=== PATIENT | female | born 1960 | race African-American/Black ===

== ENCOUNTER 2024-09-11 15:37 | Emergency (ER) | payer OTHER, SELFPAY ==
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
[2024-09-11 15:38] VITALS: BP 152/73; PULSE 90; RESP 17; TEMP 36.4; O2SAT 99
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
--- OUTSIDE RECORDS SUMMARY | 2024-09-11 18:07 | XMS_ITS | Referral Summary ---
Author Organization [facility] Address [address] [place] [address] Care Team Providers Care Brine Tank Tender Name Role Phone Radhika Ewing MD Unavailable [phone] Reina Kuhn Primary Care Provider + Encounters Date Type Department Care Team Description 09/01/2024 Letter (Out) [facility] Medical [facility] Family Medicine [address] [phone] 09/01/2024 8:30 AM JET WIPER Office Visit [facility] Family Medicine [address] [phone] Reina Kuhn PA Physical exam, annual (Primary Dx); History of breast cancer in female; Status post left mastectomy; Acquired hypothyroidism; B12 deficiency; Epidermoid cyst of skin of back 08/03/2024 Telephone [facility] Surgery [facility] Advanced Medicine [address]th [place] [address] Africa Rodriguez SCHEDULING SURGERY 07/25/2024 4:15 PM JET WIPER Office Visit [facility] Surgery [facility] Advanced Medicine [address]th [place] [address] Carson Latif MD Malignant neoplasm of upper-outer quadrant of left breast in female, estrogen receptor positive (HCC) 07/03/2024 8:36 AM JET WIPER - 07/03/2024 11:59 PM JET WIPER Hospital Encounter [facility] Medical Office [address] [place] [address] Mass of lower outer quadrant of right breast Discharge Disposition: Discharge to home or self care 07/03/2024 8:36 AM JET WIPER - 07/03/2024 11:59 PM JET WIPER Hospital Encounter [facility] Medical Office [facility] [address] [place] [address] Mass of lower outer quadrant of right breast Discharge Disposition: Discharge to home or self care 06/13/2024 4:00 PM JET WIPER Office Visit [facility] Family [facility] [address] [phone] Reina Kuhn PA Epidermoid cyst of skin of back (Primary Dx); Subacute cough; Post-nasal drip from Last 3 Months Allergies No known active allergies Medications mecobalamin (B12 ACTIVE ORAL)Indications:s upplement Take 1 tablet by mouth daily Active cetirizine (ZyrTEC) 10 mg tablet Take 1 tablet (10 mg total) by mouth daily as needed for allergies 30 tablet 5 06/13/20 24 Active Additional Information Patient not taking.Reported on 09/01/2024 fluticasone propionate (FLONASE) 50 mcg/actuation nasal spray Administer 2 sprays into each nostril daily 1 each 1 06/13/20 24 Active Additional Information Patient not taking.Reported on 09/01/2024 Knippa Thyroid 30 mg tabletIndications: Acquired hypothyroidism Take 1 tablet (30 mg total) by mouth every morning 90 tablet 3 09/01/19 25 Active Knippa Thyroid 30 mg tablet Take 1 tablet (30 mg total) by mouth every morning 12/20/19 24 025 Discontin ued(Reord er) Active Problems Problem Noted Date Diagnosed Date Acquired hypothyroidism 09/01/2024 Assessment & Plan (09/01/2024 9:03 AM JET WIPER): Chronic, stable condition. Continue current medication regimen: Knippa Thyroid 30mg B12 deficiency 09/01/2024 Assessment & Plan (09/01/2024 9:04 AM JET WIPER): Recheck labs in December Physical exam, annual 09/01/2024 Assessment & Plan (09/01/2024 9:04 AM JET WIPER): Doing well Labs due in December 2024 Other screenings UTD F/u annually Epidermoid cyst of skin of back 06/13/2024 Assessment & Plan (09/01/2024 9:03 AM JET WIPER): Bothersome, wanting removed Referral to derm placed Assessment & Plan (06/13/2024 4:20 PM JET WIPER): Very small, noninflamed. Reassured patient Continue to monitor. No further treatment needed at this time. Patient can utilize warm compresses Post-nasal drip 06/13/2024 Assessment & Plan (06/13/2024 4:20 PM JET WIPER): Likely explanation of patient's cough when lying down. Trial of Zyrtec and Flonase, if no improvement in symptoms and a couple of weeks may consider treating heartburn as culprit of cough. 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 Continue current GERD treatment. GERD precautions. 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 Pt finished appt w/ Dr. Suh. According to Industry notes, pigmentation OS retina is CHRPE. Yearly evals recommended. 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 Would like second opinion, refer to ophthalmology. Pt has large/deep CD's but no hx of glaucoma w/ good IOPS. Photodocumented today, RTC for 30-2VF, tonometry and pachymetry. Cortical age-related cataract, right eye 021 Open angle with borderline findings, high risk, bilateral 06/05/2021 Hyperopia 06/05/2021 Carpal tunnel syndrome 05/05/2021 Overview (03/19/2023): pt with postive tunnels and phalens test, trial of wrist splints, f/u in 6 - 8 weeks, consdier nerve conduciton studies iif not imrpoved. 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 symptoms have somewhat resolved taking ranitadine. but now feels symptoms of difficulty swallowing with sore throat. throat culture and h pylori today and follow-up with pmd for further evaluation Other seborrheic keratosis 03/19/2023 0 09/01/2024 Overview (03/19/2023): Reassured pt - pt to follow-up if lesion continues to change starts to become irritated, itch or bleed. Pain in wrist 03/19/2023 09/01/2024 Overview (03/19/2023): pt with previous dx of Carpel Tunnel, with increased pain in the left wrist, improvment in right wrist. Refer for x-ray evalution to eval for fracture, though seem sunlikely. If negative, recommend continue to wear brace, and refer to Ortho for evlaution. Malignant neoplasm of upper- outer quadrant of left breast in female, estrogen receptor positive 01/18/2018 09/01/2024 Smell disturbance 12/07/2017 09/01/2024 History of breast cancer 09/04/2016 Patellofemoral pain syndrome 09/04/2016 09/01/2024 Atopic dermatitis 08/12/2016 09/01/2024 Sinusitis 06/04/2016 09/01/2024 Arthralgia of shoulder 10/16/201109/01 Overview (03/19/2023): resolved, follow up as needed. If sx's recur, tx with ice/NSAIDS/rest. Immunizations Immunization Administration Dates Next Due Hep A, Adult 12/20/1997,05/15/1997 Influenza, Quadrivalent, Spl it, Preservative Free, Intramuscular 06/12/2023,06/10/2022 Influenza, Split 07/03/2008 Influenza, Trivalent, Cell Culture-based MDCK, Preservative Free, Antibiotic Free, Intramuscular 04/25/2021 Influenza, Trivalent, Preser vative Free, Intramuscular 04/03/2024 Influenza, Unspecified 04/28/2023(Deferr ed: Patient Refused),05/08/2022(Deferred: Patient Refused),04/23/2021(Deferred: Patient Refused),04/18/2021,06/23/2017, 017,05/29/2016,10/31/2015,07/31/2015,0 02/21/2015,07/18/2014,01/24/2014,2013,10/11/2013,08/30/2013,08/09/2013, 07/26/2013,07/05/2013,06/28/2013,06/14,05/31/2013,05/17/2013,05/10/2013 ,05/03/2013 Influenza, Whole 05/23/2002, 1,07/05/2000,06/05,07/10/1998,05/15/1997 MMR 04/18/1980 OPV 11/15/1980 PPD TEST 07/05/2000 Td, adsorbed 05/16/1993 Tdap 10/09/2022, 2(Deferred: Patient Refused),09/22/2010 Typohid AKD SQ 05/16/1993 Yellow Fever 08/14/1994 ZOSTER LIVE 06/23/2017, 7,05/29/2016,10/30,07/31/2015,04/24/2015,02/21/2015 ZOSTER Recombinant 08/08/2021,04/25/2021 Social History Tobacco Use Types Packs/Day Years Used Date Smoking Tobacco: Former Cigarettes 0 11/17/1975 - 11/16/1980 Smokeless Tobacco: Never Tobacco Cessation:Counseling Given: Not Answered Alcohol Use Standard Drinks/Week Comments Not Currently 0 (1 standard drink = 0.6 oz pur e alcohol) AUDIT-C Answer Date Recorded Q1: How often do you have a drink containing alc ohol? Monthly or less 03/01/2024 Q2: How many drinks containi ng alcohol do you have on a typical day when you are drinking? 1 or 2 03/01/2024 Q3: How often do you have si x or more drinks on one occasion? Never 03/01/2024 PHQ-2 Answer Date Recorded PHQ-2 Total Score (If total score is 3 or more points, staff should administer the PHQ-9) 0 09/01/2024 Personal Safety Answer Date Recorded Have you ever been in or are you currently in a harmful physical or emotional relationship or is someone making you feel afraid or unsafe? Denies 02/16/2023 Comments No Sex and Gender Information Value Date Recorded Sex Assigned at Not on file Legal Sex Female 9:58 AM JET WIPER Gender Identity Female 05/02/2021 2:23 PM CDT Sexual Orientation Straight 05/02/2021 2: 24 PM CDT Last Filed Vital Signs Vital Sign Reading Time Taken Comments Blood Pressure 118/74 09/01/2024 8:36 AM JET WIPER Pulse 66 09/01/2024 8:36 AM JET WIPER Temperature 36.4 C (97.6 F) 09/01/2024 8:36 AM JET WIPER Respiratory Rate 18 09/01/2024 8:36 AM JET WIPER Oxygen Saturation 99% 09/01/2024 8:36 AM JET WIPER Inhaled Oxygen Concentration - - Weight 68 kg (150 lb) 09/01/2024 8:36 AM JET WIPER Height 162.6 cm (5' 4 ) 09/01/2024 8:36 AM JET WIPER Body Mass Index 25.75 09/01/2024 8:36 AM JET WIPER Plan of Treatment Not on file Medical Devices Implanted Type Area Drill Press Operator Numerical Control Device Identifier Shelf Expiration Date Model / Serial / Lot [employer] Alloderm Select [id number] Allograft Regenerative Freeze Dried [id number] - S0 - [id number] Implanted:Qty: 1 on 02/16/2023 by Carson Latif MD at [facility] Other - see comments Left: Breast [employer] [id number] 06/17/2024 [id number] / 0 / [id number] Renner Memorygel Implant Implanted:Qty: 1 on 02/16/2023 by Carson Latif MD at [facility] Other - see comments Left: Breast [employer] 11/04/2027 [id number] / [id number] / Procedures Procedure Name Priority Date/Time Associated Diagnosis Comments US BREAST RIGHT LIMITED Schedule Routine, Read Routine (OP Routine) 07/03/2024 9:06 AM JET WIPER Mass of lower outer quadrant of right breast DIAGNOSTIC MAMMOGRAM RIGHT W AJ Schedule Routine, Read Routine (OP Routine) 07/03/2024 8:47 AM JET WIPER Mass of lower outer quadrant of right breast MAMMOGRAPHY Schedule Routine, Read Routine (OP Routine) 07/03/2024 8:43 AM JET WIPER US BREAST BILATERAL LIMITED Schedule Routine, Read Routine (OP Routine) 07/03/2024 8:43 AM JET WIPER HM COLONOSCOPY Routine 10/29/2023 from Last 3 Months or Most Recently Relevant to Health Maintenance Results * US Breast Right Limited (07/03/2024 9:06 AM JET WIPER) Anatomical Region Laterality Modality Breast Right Ultrasound 07/03/2024 9:12 AM JET WIPER Impressions 07/03/2024 9:12 AM JET WIPER Findings are still considered probably benign. Six-month follow-up right mammogram and right breast ultrasound are recommended. OVERALL FINAL ASSESSMENT: BI-RADS 3 - Probably benign findings. Short-term follow-up is recommended. Electronically signed by: Ginny Sanon M.D. Narrative 07/03/2024 9:12 AM JET WIPER EXAMINATION: RIGHT DIGITAL DIAGNOSTIC MAMMOGRAM AND DIGITAL BREAST TOMOSYNTHESIS; RIGHT BREAST SONOGRAM HISTORY: Follow-up. Left mastectomy. COMPARISON: Studies dating back to May 17, 2023 TECHNIQUE: Full field digital mammographic views of the right breast(s) were performed, including computer aided detection (CAD) and digital breast tomosynthesis (DBT). Directed ultrasound evaluation of the right breast(s) was performed. BREAST PARENCHYMAL COMPOSITION: The breasts are heterogeneously dense, which may obscure small masses. MAMMOGRAM FINDINGS: Again seen is a nodule in the 7:00 right breast, unchanged. There are no new masses. No suspicious calcifications are seen. There is no unexplained architectural distortion. There is no skin thickening seen. There are no mammographically abnormal lymph nodes seen in the axillae or elsewhere. ULTRASOUND FINDINGS: Sonography through the 7:00 position again demonstrates a complex cystic and solid structure with a maximum dimension of 7 mm. This is unchanged. Benigno Alvarado MD IMG MAMMO PROCEDURES Final Result * Diagnostic Mammogram Right W Aj (07/03/2024 8:47 AM JET WIPER) Anatomical Region Laterality Modality Breast Right Mammography 07/03/2024 9:12 AM JET WIPER Impressions 07/03/2024 9:12 AM JET WIPER Findings are still considered probably benign. Six-month follow-up right mammogram and right breast ultrasound are recommended. OVERALL FINAL ASSESSMENT: BI-RADS 3 - Probably benign findings. Short-term follow-up is recommended. Electronically signed by: Ginny Sanon M.D. Narrative 07/03/2024 9:12 AM JET WIPER EXAMINATION: RIGHT DIGITAL DIAGNOSTIC MAMMOGRAM AND DIGITAL BREAST TOMOSYNTHESIS; RIGHT BREAST SONOGRAM HISTORY: Follow-up. Left mastectomy. COMPARISON: Studies dating back to May 17, 2023 TECHNIQUE: Full field digital mammographic views of the right breast(s) were performed, including computer aided detection (CAD) and digital breast tomosynthesis (DBT). Directed ultrasound evaluation of the right breast(s) was performed. BREAST PARENCHYMAL COMPOSITION: The breasts are heterogeneously dense, which may obscure small masses. MAMMOGRAM FINDINGS: Again seen is a nodule in the 7:00 right breast, unchanged. There are no new masses. No suspicious calcifications are seen. There is no unexplained architectural distortion. There is no skin thickening seen. There are no mammographically abnormal lymph nodes seen in the axillae or elsewhere. ULTRASOUND FINDINGS: Sonography through the 7:00 position again demonstrates a complex cystic and solid structure with a maximum dimension of 7 mm. This is unchanged. Benigno Alvarado MD [facility] MAMMO PROCEDURES Final Result * MAMMOGRAPHY (07/03/2024 8:43 AM JET WIPER) Anatomical Region Laterality Modality Breast Mammography [facility] Provider Bruce MAMMO PROCEDURES Edit ed Result - Final * US Breast Bilateral Limited (07/03/2024 8:43 AM JET WIPER) Anatomical Region Laterality Modality Breast Bilateral Mammography [facility] Provider [facility] MAMMO PROCEDURES Danitza l Result * COLONOSCOPY (10/29/2023) Scribed Colonoscopy Normal Historical Provider HEALTH MAINTENANCE Final Result from Last 3 Months or Most Recently Relevant to Health Maintenance Insurance [facility] Member Subscriber Plan / Payer (Ef fective 2018-Present) Name:Judy Leiva Relation to Subscriber:Self Name:Judy Leiva Payer ID:[id number] (NAIC) Group ID:Not on file Type:Cylance:[phone] Address: [address] [place] [address] [facility] Advance Directives For more information, please contact: [phone] Documents on File Type Date Recorded Patient Mission Support Specialist Expl anation ADVANCE DIRECTIVE 01/14/2015 12:00 AM RIA SO WILL ADVANCE DIRECTIVE 01/14/2015 12:00 AM MO R OF TRACTOR MECHANIC HELPER FINANCIAL/MEDICAL Care Teams Brine Tank Tender Relationship Specialty Start Date End Date Reina Kuhn PA [address] [place] [address] PCP - General Family Medicine 09/01/24 Radhika Ewing MD [address] [place] [address] Referring Physician Surgery 01/11/18
--- OUTSIDE RECORDS SUMMARY | 2024-09-11 18:07 | XMS_ITS | Clinical Summary ---
Author Organization [employer] [facility] Address [address] [place] [address] Care Team Providers Care Vamp Creaser Name Role Phone Unavailable Primary Care Provider Unavailabl e Encounters Date Type Department Care Team Description 09/05/2024 External Device Data [facility]CTION Provider, Abstract 08/09/2024 External Device Data [facility] Provider, Abstract 08/08/2024 External Device Data [facility] Provider, Abstract 08/01/2024 External Device Data [facility] Provider, Abstract from Last 3 Months Social History Tobacco Use Types Packs/Day Years Used Date Smoking Tobacco: Never Assessed Comments Unknown Sex and Gender Information Value Date Recorded Sex Assigned at Not on file Legal Sex Female 11:00 AM CDT Gender Identity Not on file Sexual Orientation Not on file Plan of Treatment Health Maintenance Due Date Last Done Comments Pre-Diabetes and Diabetes Screening 1960 CERVICAL CANCER SCREENING 1990 FIT-DNA Q 3 years 2005 FIT/FOBT Q 1 year 2005 Flex Sig/CT Colonography Q 5 years 2005 INFLUENZA VACCINE (#1) 2024 2, 04/25/2021, 04/25/2021 BREAST CANCER SCREENING 06/14/2024 06/14/20 23, 05/17/2023, 08/22/2021, Additional history exists COLORECTAL SCREENING 07/10/2030 07/10/2020 Colorectal Cancer Screening 07/10/2030 DTAP/TDAP/TD VACCINES (3 - T d or Tdap) 10/09/2032 10/09/2022, 09/22/2010 RSV VACCINE (60+ or ) (1 - 1-dose 75+ series) 2035 ZOSTER VACCINE Completed 08/08/2021, 10/0 02/2021, 06/23/2017, Additional history exists Insurance [employer]
--- OUTSIDE RECORDS SUMMARY | 2024-09-11 18:07 | XMS_ITS | Encounter Summary ---
Author Organization [facility] Care Team Providers Care Lead Die Molder Name Role Phone Benigno Alvarado MD Primary Care Provid er Radhika Ewing MD Unavailable [phone] Reina Kuhn Primary Care Provider + Encounter Details Date Type Department Care Team (Latest Contact Info) Description 09/01/2017 Orders Only [facility] CLINCONV ProviderInocente MD [address] [place], [place] [id number] Social History Tobacco Use Types Packs/Day Years Used Date Smoking Tobacco: Former Comments Unknown Sex and Gender Information Value Date Recorded Sex Assigned at Not on file Legal Sex Female 9:58 AM RETAIL BEAUTY SPECIALIST Gender Identity Female 05/02/2021 2:23 PM CDT Sexual Orientation Straight 05/02/2021 2: 24 PM CDT documented as of this encounter Plan of Treatment Not on file documented as of this encounter Procedures Procedure Name Priority Date/Time Associated Diagnosis Comments CARDIOLOGY REPORT 09/01/2017 12: 00 AM RETAIL BEAUTY SPECIALIST documented in this encounter Results * CARDIOLOGY REPORT (09/01/2017 12:00 AM RETAIL BEAUTY SPECIALIST) Anatomical Region Laterality Modality Other Narrative 09/01/2017 12:00 AM RETAIL BEAUTY SPECIALIST Ordered by an unspecified provider. us Historical Provider [facility] J[facility] Final Result documented in this encounter Visit Diagnoses Not on filedocumented in this encounter Additional Health Concerns Infection Onset Date Last Indicated Resolved Time COVID: Suspected 09/13/2023 09/13/2023 09/13/2023 12:26 PM RETAIL BEAUTY SPECIALIST documented as of this encounter Care Teams Lead Die Molder Relationship Specialty Start Date End Date Benigno Alvarado MD [address] [place] [address] PCP - General Family Medicine 11/30/17 08/31/24 Reina Kuhn PA [address] [facility] [address] [place], [place] [phone] PCP - General Family Medicine 09/01/24 Radhika Ewing MD [address] [place] [address] [address] [place], [place] [phone] Referring Physician Surgery 01/11/18 documented as of this encounter
--- OUTSIDE RECORDS SUMMARY | 2024-09-11 18:07 | XMS_ITS | Clinical Summary ---
Author Organization [facility] Address [address] [place] [address] Care Team Providers Care Duster Tender Name Role Phone Radhika Ewing MD Unavailable [phone] Reina Kuhn Primary Care Provider + Allergies No known active allergies Medications mecobalamin [...] Additional Information Patient not taking.Reported on 09/01/2024 [place] Thyroid 30 mg tabletIndications: Acquired hypothyroidism Take 1 tablet (30 mg total) by mouth every morning 90 tablet 3 09/01/19 25 Active [place] Thyroid 30 mg tablet Take 1 tablet (30 mg total) by mouth every morning 12/20/19 24 025 Discontin ued(Reord er) Active Problems Problem Noted Date Diagnosed Date Acquired hypothyroidism 09/01/2024 Assessment & Plan (09/01/2024 9:03 AM ASSISTANT ACCOUNT MANAGER): Chronic, stable condition. Continue current medication regimen: [place] Thyroid 30mg B12 deficiency 09/01/2024 Assessment & Plan (09/01/2024 9:04 AM ASSISTANT ACCOUNT MANAGER): Recheck labs in December Physical exam, annual 09/01/2024 Assessment & Plan (09/01/2024 9:04 AM ASSISTANT ACCOUNT MANAGER): Doing well Labs due in December 2024 Other screenings UTD F/u annually Epidermoid cyst of skin of back 06/13/2024 Assessment & Plan (09/01/2024 9:03 AM ASSISTANT ACCOUNT MANAGER): Bothersome, wanting removed Referral to derm placed Assessment & Plan (06/13/2024 4:20 PM ASSISTANT ACCOUNT MANAGER): Very small, noninflamed. Reassured patient Continue to monitor. No further treatment needed at this time. Patient can utilize warm compresses Post-nasal drip 06/13/2024 Assessment & Plan (06/13/2024 4:20 PM ASSISTANT ACCOUNT MANAGER): Likely explanation of patient's cough when lying [...] finished appt w/ Dr. Suh. According to [place] notes, pigmentation OS retina is CHRPE. Yearly evals recommended. 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 If sx's recur, tx with ice/NSAIDS/rest. Encounters Date Type Department Care Team Description 09/01/2024 8:30 AM ASSISTANT ACCOUNT MANAGER Office Visit [facility] Family Medicine [address] [place] [phone] Reina Kuhn PA Physical exam, annual (Primary Dx); History of breast cancer in female; Status post left mastectomy; Acquired hypothyroidism; B12 deficiency; Epidermoid cyst of skin of back 09/01/2024 Letter (Out) [facility] Family Medicine [address] [place] [phone] 08/03/2024 Telephone [facility] Surgery [address] [facility] Advanced Medicine 6th [place] [phone] Africa Rodriguez SCHEDULING SURGERY 07/25/2024 4:15 PM ASSISTANT ACCOUNT MANAGER Office Visit [facility] Surgery [address] [facility] 6th [place] [phone] Carson Latif MD Malignant neoplasm of upper-outer quadrant of left breast in female, estrogen receptor positive (HCC) 07/03/2024 8:36 AM ASSISTANT ACCOUNT MANAGER - 07/03/2024 11:59 PM ASSISTANT ACCOUNT MANAGER Hospital Encounter [facility] Medical Office Bldg [address] [place] [phone] Mass of lower outer quadrant of right breast Discharge Disposition: Discharge to home or self care 07/03/2024 8:36 AM ASSISTANT ACCOUNT MANAGER - 07/03/2024 11:59 PM ASSISTANT ACCOUNT MANAGER Hospital Encounter [facility] Medical Office Bl [address] [place] [address] Mass of lower outer quadrant of right breast Discharge Disposition: Discharge to home or self care 06/13/2024 4:00 PM ASSISTANT ACCOUNT MANAGER Office Visit [facility] Family Medicine [address] [place] [phone] Reina Kuhn PA Epidermoid cyst of skin of back (Primary Dx); Subacute cough; Post-nasal drip from Last 3 Months Immunizations Immunization Administration Dates Next Due Hep [...] ZOSTER LIVE 06/23/2017, 7,05/29/2016,10/30,07/31/2015,04/24/2015,02/21/2015 ZOSTER Recombinant 08/08/2021,04/25/2021 Surgical History Surgery Date Site/Laterality Comments HYSTERECTOMY 07/19/1997 - 07/18/1998 BREAST BIOPSY 03/21/2013 Left BREAST BIOPSY 03/21/2013 Left MASTECTOMY 07/19/2013 - 07/18/2014 Left TRIGGER FINGER RELEASE 07/19/2022 - 08/18/2022 Medical History Medical History Date Comments Vertigo Breast cancer (HCC) left Arthralgia of shoulder 10/16/2011 resolved, follow up as needed. If sx's recur, tx with ice/NSAIDS/rest. Malignant neoplasm of upper- outer quadrant of left breast in female, estrogen receptor positive (HCC) 01/18/2018 Patellofemoral pain syndrome 09/04/2016 Dysphagia 03/19/2023 pt with history of gerd saw ent and mri of throat showed small cyst on vocal cord...per patient. symptoms have somewhat resolved taking ranitadine. but now feels symptoms of difficulty swallowing with sore throat. throat culture and h pylori today and follow-up with pmd for further evaluation Family History Medical History Relation Name Comments Colon cancer Father Heart disease Mother Hypertension Mother Anesthesia problems Neg Hx Relation Name Status Comments Father Mother Social History Tobacco Use Types Packs/Day Years [...] on file Legal Sex Female 9:58 AM ASSISTANT ACCOUNT MANAGER Gender Identity Female 05/02/2021 2:23 PM CDT Sexual Orientation Straight 05/02/2021 2: 24 PM CDT Obstetrics History Para Term AB IAB SAB Ectopic Multiple Livin g Live Births 2 2 2 Date Outcome GA Total Labor Labor//3rd Weight Sex Type Anes PTL Opal A1 A5 Name Clin Term Term Last Filed Vital Signs Vital Sign Reading Time Taken Comments Blood Pressure 118/74 09/01/2024 8:36 AM ASSISTANT ACCOUNT MANAGER Pulse 66 09/01/2024 8:36 AM ASSISTANT ACCOUNT MANAGER Temperature 36.4 C (97.6 F) 09/01/2024 8:36 AM ASSISTANT ACCOUNT MANAGER Respiratory Rate 18 09/01/2024 8:36 AM ASSISTANT ACCOUNT MANAGER Oxygen Saturation 99% 09/01/2024 8:36 AM ASSISTANT ACCOUNT MANAGER Inhaled Oxygen Concentration - - Weight 68 kg (150 lb) 09/01/2024 8:36 AM ASSISTANT ACCOUNT MANAGER Height 162.6 cm (5' 4 ) 09/01/2024 8:36 AM ASSISTANT ACCOUNT MANAGER Body Mass Index 25.75 09/01/2024 8:36 AM ASSISTANT ACCOUNT MANAGER Plan of Treatment Health Maintenance Due Date Last Done Comments Hepatitis C Screening 1960 Hepatitis B Screening 1978 Covid-19 Vaccine ( season) 2024 06/12/2023, 06/10/2022, 05/30/2021, Additional history exists Breast Cancer Screening-Mammogram 07/03/2025 07/03/2024, 05/17/2023, 08/22/2021, Additional history exists Depression Screening 09/01/2025 09/01/2024, 06/13/2024, 03/01/2024, Additional history exists Regular Well Visit/Exam 18-64 09/01/2025 09/01/2024, 08/16/2023, 08/16/2023, Additional history exists Colon Cancer Screening-Colonoscopy 10/28/2028 10/29/2023, 07/10/2020 DTaP/Tdap/Td Vaccine (3 - Td or Tdap) 10/09/2032 10/09/2022, 09/22/2010, 05/16/1993 Zoster Vaccine Completed 08/08/2021, 10/02/2021, 06/23/2017, Additional history exists Colon Cancer Screening-CT Colonography Discontinued 10/29/2023, 07/10/2020 Colon Cancer Screening-DNA Stool Discontinued 10/29/2023, 07/10/2020 Colon Cancer Screening-FIT Discontinued 10/29/2023, Colon Cancer Screening-Sigmoidoscopy Discontinued 10/29/2023, 07/10/2020 Influenza Vaccine Completed 04/03/2024, , 06/10/2022, Additional history exists Pneumococcal vaccine <65 Aged Out No longer eligible based on patient's age to complete this topic Medical Devices Implanted Type Area Grease Maker Device Identifier Shelf Expiration Date Model / Serial / Lot [employer] Alloderm Select [id number] Allograft Regenerative Freeze Dried [id number] - S0 - [id number] Implanted:Qty: 1 on 02/16/2023 by Carson Latif MD at [facility] Other - see comments Left: Breast [employer] [id number] 06/17/2024 [id number] / 0 / [id number] [place] Memory[employer] Implant Implanted:Qty: 1 on 02/16/2023 by Carson Latif MD at [facility] Other - see comments Left: Breast [employer] 11/04/2027 [id number] / [id number] / Procedures Procedure Name Priority Date/Time Associated Diagnosis Comments US BREAST RIGHT LIMITED Schedule Routine, Read Routine (OP Routine) 07/03/2024 9:06 AM ASSISTANT ACCOUNT MANAGER Mass of lower outer quadrant of right breast DIAGNOSTIC MAMMOGRAM RIGHT W AJ Schedule Routine, Read Routine (OP Routine) 07/03/2024 8:47 AM ASSISTANT ACCOUNT MANAGER Mass of lower outer quadrant of right breast MAMMOGRAPHY Schedule Routine, Read Routine (OP Routine) 07/03/2024 8:43 AM ASSISTANT ACCOUNT MANAGER US BREAST BILATERAL LIMITED Schedule Routine, Read Routine (OP Routine) 07/03/2024 8:43 AM ASSISTANT ACCOUNT MANAGER HM COLONOSCOPY Routine 10/29/2023 from Last 3 Months or Most Recently Relevant to Health Maintenance Results * US Breast Right Limited (07/03/2024 9:06 AM ASSISTANT ACCOUNT MANAGER) Anatomical Region Laterality Modality Breast Right Ultrasound 07/03/2024 9:12 AM ASSISTANT ACCOUNT MANAGER Impressions 07/03/2024 9:12 AM ASSISTANT ACCOUNT MANAGER Findings are still considered probably benign. Six-month follow-up right mammogram and right breast ultrasound are recommended. OVERALL FINAL ASSESSMENT: BI-RADS 3 - Probably benign findings. Short-term follow-up is recommended. Electronically signed by: Ginny Sanon M.D. Narrative 07/03/2024 9:12 AM ASSISTANT ACCOUNT MANAGER EXAMINATION: RIGHT DIGITAL DIAGNOSTIC MAMMOGRAM AND DIGITAL [...] mm. This is unchanged. Benigno Alvarado MD [facility]ED[place] Final Result * Diagnostic Mammogram Right W Aj (07/03/2024 8:47 AM ASSISTANT ACCOUNT MANAGER) Anatomical Region Laterality Modality Breast Right Mammography 07/03/2024 9:12 AM ASSISTANT ACCOUNT MANAGER Impressions 07/03/2024 9:12 AM ASSISTANT ACCOUNT MANAGER Findings are still considered probably benign. Six-month follow-up right mammogram and right breast ultrasound are recommended. OVERALL FINAL ASSESSMENT: BI-RADS 3 - Probably benign findings. Short-term follow-up is recommended. Electronically signed by: Ginny Sanon M.D. Narrative 07/03/2024 9:12 AM ASSISTANT ACCOUNT MANAGER EXAMINATION: RIGHT DIGITAL DIAGNOSTIC MAMMOGRAM AND DIGITAL [...] MD IMG MAMMO PROCEDURES Final Result * MAMMOGRAPHY (07/03/2024 8:43 AM ASSISTANT ACCOUNT MANAGER) Anatomical Region Laterality Modality Breast Mammography Historical Provider MD WILD MAMMO PROCEDURES Edit ed Result - Final * US Breast Bilateral Limited (07/03/2024 8:43 AM ASSISTANT ACCOUNT MANAGER) Anatomical Region Laterality Modality Breast Bilateral Mammography Historical Provider MD WILD MAMMO PROCEDURES Danitza l Result * HM COLONOSCOPY (10/29/2023) Scribed HM Colonoscopy Normal us Historical Provider HEALTH MAINTENANCE Final Result from Last 3 Months or Most Recently Relevant to Health Maintenance Insurance [facility] Advance Directives For more information, please contact: [phone] Documents on File Type Date Recorded Patient Ropewalk Rope Maker Expl anation ADVANCE DIRECTIVE 01/14/2015 12:00 AM RIA SO WILL ADVANCE DIRECTIVE 01/14/2015 12:00 AM [place] R OF STUDIO DATA ANALYST FINANCIAL/MEDICAL Care Teams Duster Tender Relationship Specialty Start Date End Date Reina Kuhn PA [address] [facility] [address] [place], [place] [phone] PCP - General Family Medicine 09/01/24 Radhika Ewing MD [address] [facility] [address] [place], [place] [phone] Referring Physician Surgery 01/11/18
--- OUTSIDE RECORDS SUMMARY | 2024-09-11 18:48 | XMS_ITS | Clinical Summary ---
Author Organization [employer] [facility] Address [address] [place] [address] Care Team Providers Care Camera Repairman Name Role Phone Unavailable Primary Care Provider [...]
--- OUTSIDE RECORDS SUMMARY | 2024-09-11 18:48 | XMS_ITS | Referral Summary ---
Author Organization [facility] Address [address] [place] [address] Care Team Providers Care Copra Sampler Name Role Phone Radhika Ewing MD Unavailable [phone] Reina Kuhn Primary Care Provider + Encounters Date Type Department Care Team Description 09/01/2024 Letter (Out) [facility] Medical [facility] Family Medicine [address] [phone] 09/01/2024 8:30 AM UNDERWATER PHOTOGRAPHER Office Visit [facility] Family Medicine [address] [phone] Reina Kuhn PA Physical exam, annual (Primary Dx); History of breast cancer in female; Status post left mastectomy; Acquired hypothyroidism; B12 deficiency; Epidermoid cyst of skin of back 08/03/2024 Telephone [facility] Surgery [facility] Advanced Medicine 6th [place] [address] Africa Rodriguez SCHEDULING SURGERY 07/25/2024 4:15 PM UNDERWATER PHOTOGRAPHER Office Visit [facility] Surgery [facility] Advanced Medicine 6th [place] [address] Carson Latif MD Malignant neoplasm of upper-outer quadrant of left breast in female, estrogen receptor positive (HCC) 07/03/2024 8:36 AM UNDERWATER PHOTOGRAPHER - 07/03/2024 11:59 PM UNDERWATER PHOTOGRAPHER Hospital Encounter [facility] Medical Office Bldg [address] [place] [address] Mass of lower outer quadrant of right breast Discharge Disposition: Discharge to home or self care 07/03/2024 8:36 AM UNDERWATER PHOTOGRAPHER - 07/03/2024 11:59 PM UNDERWATER PHOTOGRAPHER Hospital Encounter [facility] Medical Office [facility] [address] [place] [address] Mass of lower outer quadrant of right breast Discharge Disposition: Discharge to home or self care 06/13/2024 4:00 PM UNDERWATER PHOTOGRAPHER Office Visit [facility] Medical Group Family Medicine [address] [phone] Reina Kuhn PA Epidermoid cyst [...] Additional Information Patient not taking.Reported on 09/01/2024 [place] Thyroid 30 mg tabletIndications: Acquired hypothyroidism Take 1 tablet (30 mg total) by mouth every morning 90 tablet 3 09/01/19 25 Active [place] Thyroid 30 mg tablet Take 1 tablet (30 mg total) by mouth every morning 12/20/19 24 025 Discontin ued(Reord er) Active Problems Problem Noted Date Diagnosed Date Acquired hypothyroidism 09/01/2024 Assessment & Plan (09/01/2024 9:03 AM UNDERWATER PHOTOGRAPHER): Chronic, stable condition. Continue current medication regimen: [place] Thyroid 30mg B12 deficiency 09/01/2024 Assessment & Plan (09/01/2024 9:04 AM UNDERWATER PHOTOGRAPHER): Recheck labs in December Physical exam, annual 09/01/2024 Assessment & Plan (09/01/2024 9:04 AM UNDERWATER PHOTOGRAPHER): Doing well Labs due in December 2024 Other screenings UTD F/u annually Epidermoid cyst of skin of back 06/13/2024 Assessment & Plan (09/01/2024 9:03 AM UNDERWATER PHOTOGRAPHER): Bothersome, wanting removed Referral to derm placed Assessment & Plan (06/13/2024 4:20 PM UNDERWATER PHOTOGRAPHER): Very small, noninflamed. Reassured patient Continue to monitor. No further treatment needed at this time. Patient can utilize warm compresses Post-nasal drip 06/13/2024 Assessment & Plan (06/13/2024 4:20 PM UNDERWATER PHOTOGRAPHER): Likely explanation of patient's cough when lying [...] finished appt w/ Dr. Suh. 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 Yearly evals recommended. 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 Status post left mastectomy 01/18/2023 History of breast cancer in female 01/18/2023 Assessment & Plan (09/01/2024 9:05 AM UNDERWATER PHOTOGRAPHER): S/p left mastectomy Right breast is monitored [...] on file Legal Sex Female 9:58 AM UNDERWATER PHOTOGRAPHER Gender Identity Female 05/02/2021 2:23 PM CDT Sexual Orientation Straight 05/02/2021 2: 24 PM CDT Last Filed Vital Signs Vital Sign Reading Time Taken Comments Blood Pressure 118/74 09/01/2024 8:36 AM UNDERWATER PHOTOGRAPHER Pulse 66 09/01/2024 8:36 AM UNDERWATER PHOTOGRAPHER Temperature 36.4 C (97.6 F) 09/01/2024 8:36 AM UNDERWATER PHOTOGRAPHER Respiratory Rate 18 09/01/2024 8:36 AM UNDERWATER PHOTOGRAPHER Oxygen Saturation 99% 09/01/2024 8:36 AM UNDERWATER PHOTOGRAPHER Inhaled Oxygen Concentration - - Weight 68 kg (150 lb) 09/01/2024 8:36 AM UNDERWATER PHOTOGRAPHER Height 162.6 cm (5' 4 ) 09/01/2024 8:36 AM UNDERWATER PHOTOGRAPHER Body Mass Index 25.75 09/01/2024 8:36 AM UNDERWATER PHOTOGRAPHER Plan of Treatment Not on file Medical Devices Implanted Type Area French Comber Device Identifier Shelf Expiration Date Model / Serial / Lot [employer] Alloderm Select [id number] Allograft Regenerative Freeze Dried [id number] - S0 - [id number] Implanted:Qty: 1 on 02/16/2023 by Carson Latif MD at [facility] Other - see comments Left: Breast [employer] [id number] 06/17/2024 [id number] / 0 / [id number] [place] Memory[employer] Implant Implanted:Qty: 1 on 02/16/2023 by Carson Latif MD at [facility] Other - see comments Left: Breast [employer] 11/04/2027 [id number] / [id number] / Procedures Procedure Name Priority Date/Time Associated Diagnosis Comments US BREAST RIGHT LIMITED Schedule Routine, Read Routine (OP Routine) 07/03/2024 9:06 AM UNDERWATER PHOTOGRAPHER Mass of lower outer quadrant of right breast DIAGNOSTIC MAMMOGRAM RIGHT W AJ Schedule Routine, Read Routine (OP Routine) 07/03/2024 8:47 AM UNDERWATER PHOTOGRAPHER Mass of lower outer quadrant of right breast MAMMOGRAPHY Schedule Routine, Read Routine (OP Routine) 07/03/2024 8:43 AM UNDERWATER PHOTOGRAPHER US BREAST BILATERAL LIMITED Schedule Routine, Read Routine (OP Routine) 07/03/2024 8:43 AM UNDERWATER PHOTOGRAPHER HM COLONOSCOPY Routine 10/29/2023 from Last 3 Months or Most Recently Relevant to Health Maintenance Results * US Breast Right Limited (07/03/2024 9:06 AM UNDERWATER PHOTOGRAPHER) Anatomical Region Laterality Modality Breast Right Ultrasound 07/03/2024 9:12 AM UNDERWATER PHOTOGRAPHER Impressions 07/03/2024 9:12 AM UNDERWATER PHOTOGRAPHER Findings are still considered probably benign. Six-month follow-up right mammogram and right breast ultrasound are recommended. OVERALL FINAL ASSESSMENT: BI-RADS 3 - Probably benign findings. Short-term follow-up is recommended. Electronically signed by: Ginny Sanon M.D. Narrative 07/03/2024 9:12 AM UNDERWATER PHOTOGRAPHER EXAMINATION: RIGHT DIGITAL DIAGNOSTIC MAMMOGRAM AND DIGITAL [...] Mammogram Right W Aj (07/03/2024 8:47 AM UNDERWATER PHOTOGRAPHER) Anatomical Region Laterality Modality Breast Right Mammography 07/03/2024 9:12 AM UNDERWATER PHOTOGRAPHER Impressions 07/03/2024 9:12 AM UNDERWATER PHOTOGRAPHER Findings are still considered probably benign. Six-month follow-up right mammogram and right breast ultrasound are recommended. OVERALL FINAL ASSESSMENT: BI-RADS 3 - Probably benign findings. Short-term follow-up is recommended. Electronically signed by: Ginny Sanon M.D. Narrative 07/03/2024 9:12 AM UNDERWATER PHOTOGRAPHER EXAMINATION: RIGHT DIGITAL DIAGNOSTIC MAMMOGRAM AND DIGITAL [...] mm. This is unchanged. Benigno Alvarado MD [facility] [place]ED[place] Final Result * MAMMOGRAPHY (07/03/2024 8:43 AM UNDERWATER PHOTOGRAPHER) Anatomical Region Laterality Modality Breast Mammography [facility] Provider Bruce MAMMO PROCEDURES Edit ed Result - Final * US Breast Bilateral Limited (07/03/2024 8:43 AM UNDERWATER PHOTOGRAPHER) Anatomical Region Laterality Modality Breast Bilateral Mammography [facility] Provider [facility]ED[place] Danitza l Result * COLONOSCOPY (10/29/2023) Scribed Colonoscopy Normal Historical Provider HEALTH MAINTENANCE Final Result from Last 3 Months or Most Recently Relevant to Health Maintenance Insurance [facility] Member Subscriber Plan / Payer (Ef fective 2018-Present) Name:Judy Leiva Relation to Subscriber:Self Name:Judy Leiva Payer ID:[id number] (NAIC) Group ID:Not on file Type:Formative Labs:[phone] Address: [place] [address] [facility] Advance Directives For more information, please contact: [phone] Documents on File Type Date Recorded 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
--- OUTSIDE RECORDS SUMMARY | 2024-09-11 18:48 | XMS_ITS | Encounter Summary ---
Author Organization [facility] Care Team Providers Care [employer] Name Role Phone Benigno Alvarado MD Primary Care Provid er Radhika Ewing MD Unavailable [phone] Reina Kuhn Primary Care Provider + Encounter Details Date Type Department Care Team (Latest Contact Info) Description 09/01/2017 Orders Only [facility]INCON[facility] ProviderInocente MD [address] [place], [place] [phone] Social History Tobacco Use Types Packs/Day Years Used Date Smoking Tobacco: Former Comments Unknown Sex and Gender Information Value Date Recorded Sex Assigned at Not on file Legal Sex Female 9:58 AM PLANNING SUPERVISOR Gender Identity Female 05/02/2021 2:23 PM CDT Sexual Orientation Straight 05/02/2021 2: 24 PM CDT documented as of this encounter Plan of Treatment Not on file documented as of this encounter Procedures Procedure Name Priority Date/Time Associated Diagnosis Comments CARDIOLOGY REPORT 09/01/2017 12: 00 AM PLANNING SUPERVISOR documented in this encounter Results * CARDIOLOGY REPORT (09/01/2017 12:00 AM PLANNING SUPERVISOR) Anatomical Region Laterality Modality Other Narrative 09/01/2017 12:00 AM PLANNING SUPERVISOR Ordered by an unspecified provider. us Historical Provider [facility] Final Result documented in this encounter Visit Diagnoses Not on filedocumented in this encounter Additional Health Concerns Infection Onset Date Last Indicated Resolved Time COVID: Suspected 09/13/2023 09/13/2023 09/13/2023 12:26 PM PLANNING SUPERVISOR documented as of this encounter Care Teams [employer] Relationship Specialty Start Date End Date Benigno Alvarado MD [address] [place] [address] PCP - General Family Medicine 11/30/17 08/31/24 Reina Kuhn PA [address] [facility] [address] [place], [place] [phone] PCP - General Family Medicine 09/01/24 Radhika Ewing MD [address] [place] [address] [address] [place], [place] [phone] Referring Physician Surgery 01/11/18 documented as of this encounter
--- OUTSIDE RECORDS SUMMARY | 2024-09-11 18:48 | XMS_ITS | Clinical Summary ---
Author Organization [facility] Address [address] [place] [address] Care Team Providers Care Store Manager Name Role Phone Radhika Ewing MD Unavailable [phone] Reina Kuhn Primary Care Provider + Allergies [...] Additional Information Patient not taking.Reported on 09/01/2024 [facility] Thyroid 30 mg tabletIndications: Acquired hypothyroidism Take 1 tablet (30 mg total) by mouth every morning 90 tablet 3 09/01/19 25 Active [facility] Thyroid 30 mg tablet Take 1 tablet (30 mg total) by mouth every morning 12/20/19 24 025 Discontin ued(Reord er) Active Problems Problem Noted Date Diagnosed Date Acquired hypothyroidism 09/01/2024 Assessment & Plan (09/01/2024 9:03 AM COMIC WRITER): Chronic, stable condition. Continue current medication regimen: [facility] Thyroid 30mg B12 deficiency 09/01/2024 Assessment & Plan (09/01/2024 9:04 AM COMIC WRITER): Recheck labs in December Physical exam, annual 09/01/2024 Assessment & Plan (09/01/2024 9:04 AM COMIC WRITER): Doing well Labs due in December 2024 Other screenings UTD F/u annually Epidermoid cyst of skin of back 06/13/2024 Assessment & Plan (09/01/2024 9:03 AM COMIC WRITER): Bothersome, wanting removed Referral to derm placed Assessment & Plan (06/13/2024 4:20 PM COMIC WRITER): Very small, noninflamed. Reassured patient Continue to monitor. No further treatment needed at this time. Patient can utilize warm compresses Post-nasal drip 06/13/2024 Assessment & Plan (06/13/2024 4:20 PM COMIC WRITER): Likely explanation of patient's cough when lying [...] finished appt w/ Dr. Suh. 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 Yearly evals recommended. 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 Status post left mastectomy 01/18/2023 History of breast cancer in female 01/18/2023 Assessment & Plan (09/01/2024 9:05 AM COMIC WRITER): S/p left mastectomy Right breast is monitored [...] Department Care Team Description 09/01/2024 8:30 AM COMIC WRITER Office Visit [facility] Family Medicine [address] [place] [phone] Reina Kuhn PA Physical exam, annual (Primary Dx); History of breast cancer in female; Status post left mastectomy; Acquired hypothyroidism; B12 deficiency; Epidermoid cyst of skin of back 09/01/2024 Letter (Out) [facility] Family Medicine [address] [place] [phone] 08/03/2024 Telephone [facility] Surgery [address] [facility] Advanced Medicine 6th [place] [phone] Africa Rodriguez SCHEDULING SURGERY 07/25/2024 4:15 PM COMIC WRITER Office Visit [facility] Surgery [address] [facility] [address]th [place] [phone] Carson Latif MD Malignant neoplasm of upper-outer quadrant of left breast in female, estrogen receptor positive (HCC) 07/03/2024 8:36 AM COMIC WRITER - 07/03/2024 11:59 PM COMIC WRITER Hospital Encounter [facility] Medical Office Bldg [address] [place] [phone] [place] of lower outer quadrant of right breast Discharge Disposition: Discharge to home or self care 07/03/2024 8:36 AM COMIC WRITER - 07/03/2024 11:59 PM COMIC WRITER Hospital Encounter [facility] Medical Office Bl [address] [place] [phone] [place] of lower outer quadrant of right breast Discharge Disposition: Discharge to home or self care 06/13/2024 4:00 PM COMIC WRITER Office Visit [facility] Family Medicine [address] [place] [phone] Reina Kuhn PA Epidermoid cyst of [...] on file Legal Sex Female 9:58 AM COMIC WRITER Gender Identity Female 05/02/2021 2:23 PM CDT [...] Comments Blood Pressure 118/74 09/01/2024 8:36 AM COMIC WRITER Pulse 66 09/01/2024 8:36 AM COMIC WRITER Temperature 36.4 C (97.6 F) 09/01/2024 8:36 AM COMIC WRITER Respiratory Rate 18 09/01/2024 8:36 AM COMIC WRITER Oxygen Saturation 99% 09/01/2024 8:36 AM COMIC WRITER Inhaled Oxygen Concentration - - Weight 68 kg (150 lb) 09/01/2024 8:36 AM COMIC WRITER Height 162.6 cm (5' 4 ) 09/01/2024 8:36 AM COMIC WRITER Body Mass Index 25.75 09/01/2024 8:36 AM COMIC WRITER Plan of Treatment Health Maintenance Due Date [...] this topic Medical Devices Implanted Type Area Certified Pediatric Nurse Practitioner Device Identifier Shelf Expiration Date Model / Serial / Lot [employer] Alloderm Select [id number] Allograft Regenerative Freeze Dried [id number] - S0 - [id number] Implanted:Qty: 1 on 02/16/2023 by Carson Latif MD at [facility] Other - see comments Left: Breast [employer] [id number] 06/17/2024 [id number] / 0 / [id number] [place] [employer] Implant Implanted:Qty: 1 on 02/16/2023 by Carson Latif MD at [facility] Other - see comments Left: Breast [employer] 11/04/2027 [id number] / [id number] / Procedures Procedure Name Priority Date/Time Associated Diagnosis Comments US BREAST RIGHT LIMITED Schedule Routine, Read Routine (OP Routine) 07/03/2024 9:06 AM COMIC WRITER Mass of lower outer quadrant of right breast DIAGNOSTIC MAMMOGRAM RIGHT W AJ Schedule Routine, Read Routine (OP Routine) 07/03/2024 8:47 AM COMIC WRITER Mass of lower outer quadrant of right breast MAMMOGRAPHY Schedule Routine, Read Routine (OP Routine) 07/03/2024 8:43 AM COMIC WRITER US BREAST BILATERAL LIMITED Schedule Routine, Read Routine (OP Routine) 07/03/2024 8:43 AM COMIC WRITER HM COLONOSCOPY Routine 10/29/2023 from Last 3 Months or Most Recently Relevant to Health Maintenance Results * US Breast Right Limited (07/03/2024 9:06 AM COMIC WRITER) Anatomical Region Laterality Modality Breast Right Ultrasound 07/03/2024 9:12 AM COMIC WRITER Impressions 07/03/2024 9:12 AM COMIC WRITER Findings are still considered probably benign. Six-month follow-up right mammogram and right breast ultrasound are recommended. OVERALL FINAL ASSESSMENT: BI-RADS 3 - Probably benign findings. Short-term follow-up is recommended. Electronically signed by: Ginny Sanon M.D. Narrative 07/03/2024 9:12 AM COMIC WRITER EXAMINATION: RIGHT DIGITAL DIAGNOSTIC MAMMOGRAM AND DIGITAL [...] mm. This is unchanged. Benigno Alvarado MD [facility] MAMMO PROCEDURES Final Result * Diagnostic Mammogram Right W Aj (07/03/2024 8:47 AM COMIC WRITER) Anatomical Region Laterality Modality Breast Right Mammography 07/03/2024 9:12 AM COMIC WRITER Impressions 07/03/2024 9:12 AM COMIC WRITER Findings are still considered probably benign. Six-month follow-up right mammogram and right breast ultrasound are recommended. OVERALL FINAL ASSESSMENT: BI-RADS 3 - Probably benign findings. Short-term follow-up is recommended. Electronically signed by: Ginny Sanon M.D. Narrative 07/03/2024 9:12 AM COMIC WRITER EXAMINATION: RIGHT DIGITAL DIAGNOSTIC MAMMOGRAM AND DIGITAL [...] Final Result * MAMMOGRAPHY (07/03/2024 8:43 AM COMIC WRITER) Anatomical Region Laterality Modality Breast Mammography Historical Provider MD WILD MAMMO PROCEDURES Edit ed Result - Final * US Breast Bilateral Limited (07/03/2024 8:43 AM COMIC WRITER) Anatomical Region Laterality Modality Breast Bilateral Mammography Historical Provider MD WILD MAMMO PROCEDURES Danitza l Result * HM COLONOSCOPY (10/29/2023) Scribed HM Colonoscopy Normal us Historical Provider HEALTH MAINTENANCE Final Result from Last 3 Months or Most Recently Relevant to Health Maintenance Insurance [facility] Advance Directives For more information, please contact: [phone] Documents on File Type Date Recorded 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
== END 2024-09-11 16:44 | disposition home or self-care (01) ==
PROVIDERS: Emergency Provider Physician Assistant; PCP Physician Assistant
DX: S20.212A Contusion of left front wall of thorax, initial encounter (principal); V43.52XA Car driver injured in collision with other type car in traffic accident, initial encounter
CPT/HCPCS: 71046; 99283